=== PATIENT | female | born 2005 | race Caucasian/White ===

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

== ENCOUNTER 2024-01-29 20:17 | Inpatient (IN) | payer OTHER ==
[~2024-01-29] VITALS: Ht 167.6 cm; Wt 109.1 kg
[2024-01-29 20:45] VITALS: BP 117/58
[2024-01-29] MEDS ORDERED: ACYC400 PO (20:51)
[2024-01-29] MEDS ORDERED: PANT40 PO (20:52)
[2024-01-29] MEDS ORDERED: Carboprost Tromethamine 250 MCG/ML 1ML Amp IM PRN (21:00)
[2024-01-29] MEDS ORDERED: Lactated Ringer's 1,000 ML IV PRN ×3 (21:00→21:45)
[2024-01-29] MEDS ORDERED: Acetaminophen 500 MG Tab PO PRN (21:00)
[2024-01-29] MEDS ORDERED: Misoprostol 200 MCG Tab BC PRN (21:00)
[2024-01-29] MEDS ORDERED: Calcium Carbonate 500 MG Tab Chew PO PRN ×2 (21:00→21:35)
[2024-01-29] MEDS ORDERED: Tranexamic Acid 100 ML IV PRN (21:00)
[2024-01-29] MEDS ORDERED: Oxytocin 10 Unit / ML Vial IM PRN (21:00)
[2024-01-29] MEDS ORDERED: Ondansetron HCl 2 MG / ML 2ML Vial IV PRN (21:00)
[2024-01-29] MEDS ORDERED: Methylergonovine Maleate 0.2MG / ML 1ML Amp IM PRN (21:00)
[2024-01-29] MEDS ORDERED: Misoprostol 200 MCG Tab PR PRN (21:00)
[2024-01-29] MEDS ORDERED: OXYTOCIN/RINGER'S LACTATE 500 ML IV PRN (21:00)
[2024-01-29 21:30] LABS: BASOPHILS ABSOLUTE AUTO 0.03 K/mm3 (0.00-0.23); BASOPHILS PERCENT AUTO 0 % (0-2); EOSINOPHILS ABSOLUTE AUTO 0.15 K/mm3 (0.00-0.68); EOSINOPHILS PERCENT AUTO 1 % (0-6); Hematocrit 30.8 % (33.0-51.0); Hemoglobin 10.3 g/dL (11.5-16.0); IMMATURE GRAN ABSOLUTE AUTO 0.13 K/mm3 (0.00-0.10); IMMATURE GRAN PERCENT AUTO 1 % (0-1); LYMPHOCYTES ABSOLUTE AUTO 2.53 K/mm3 (0.84-5.20); LYMPHOCYTES PERCENT AUTO 20 % (21-46); MONOCYTES ABSOLUTE AUTO 0.81 K/mm3 (0.16-1.47); MONOCYTES PERCENT AUTO 6 % (4-13); Mean Corpuscular HGB 29.7 pg (26.0-34.0); Mean Corpuscular HGB Conc 33.4 g/dL (31.5-36.5); Mean Corpuscular Volume 89 fL (80-100); Mean Platelet Volume 10.8 fL (9.1-12.4); NEUTROPHILS PERCENT AUTO 72 % (41-73); Platelet Count 219 K/mm3 (150-400); RDW Coefficient Variation 12.4 % (11.7-14.2); Red Blood Cell Count 3.47 M/mm3 (3.80-5.20); White Blood Cell Count 12.95 K/mm3 (4.00-11.30)
[2024-01-29] MEDS ORDERED: Zolpidem Tartrate 5 MG Tab PO PRN (21:35)
[2024-01-29] MEDS ORDERED: DiphenhydrAMINE HCl 50 MG Cap PO PRN (21:35)
[2024-01-29] MEDS ORDERED: Zolpidem Tartrate 10 MG Tab PO PRN (21:40)
[2024-01-29] MEDS ORDERED: FentaNYL 2mcg/ml-Bup 0.1% Epd 250 ML EPI PRN (21:45)
[2024-01-29] MEDS ORDERED: ePHEDrine Sulfate 50 MG/ML 1ML Injection XX PRN (21:45)
[2024-01-29] MEDS ORDERED: Misoprostol 25 MCG Tab VAG PRN (21:55)
[2024-01-30] VITALS (28 sets, daily range): BP systolic 87–144; BP diastolic 50–95
[2024-01-30] MEDS ORDERED: Misoprostol 25 MCG Tab PO SCH
[2024-01-30] MEDS ORDERED: FentaNYL Citrate 50 MCG/ML 2 ML Injection ONE (14:10)
[2024-01-31] VITALS (12 sets, daily range): BP systolic 117–140; BP diastolic 55–80
[2024-01-31] MEDS ORDERED: Methylergonovine Maleate 0.2MG / ML 1ML Amp IM PRN (00:50)
[2024-01-31] MEDS ORDERED: Lanolin Cream TOP PRN (00:50)
[2024-01-31] MEDS ORDERED: OXYTOCIN/RINGER'S LACTATE 500 ML IV SCH (00:50)
[2024-01-31] MEDS ORDERED: OxyCODONE 5 mg/Acetamin 325 mg TABLET PO PRN (00:50)
[2024-01-31] MEDS ORDERED: FLU VACC TS2024-25(6MOS UP)/PF 45 MCG/0.5 ML SYRINGE IM SCH (00:55)
[2024-01-31] MEDS ORDERED: Benzocaine Topical Anesthetic Spray 60GM TOP PRN (00:55)
[2024-01-31] MEDS ORDERED: Ketorolac Tromethamine 30mg Vial IV PRN (00:55)
[2024-01-31] MEDS ORDERED: Misoprostol 100 MCG Tab PO PRN (00:55)
[2024-01-31] MEDS ORDERED: Ibuprofen 400 MG Tab PO PRN (00:55)
[2024-01-31] MEDS ORDERED: Lactated Ringer's 1,000 ML IV SCH (00:55)
[2024-01-31] MEDS ORDERED: Witch Hazel/Glycerin PADS TOP PRN (00:55)
[2024-01-31] MEDS ORDERED: Acetaminophen 325 MG TABLET PO PRN (01:00)
[2024-01-31] MEDS ORDERED: Docusate Sodium 100 MG Cap PO PRN (01:00)
[2024-01-31] MEDS ORDERED: Diphth,Pertuss(Acell),Tet Vac 0.5 ML VIAL IM SCH (01:00)
[2024-01-31] MEDS ORDERED: Prenatal Vit/FE Fumarate/FA 1 Tab PO SCH (09:00)
[2024-02-01 01:34] VITALS: BP 111/51
[2024-02-01] MEDS ORDERED: IBUP800 PO (02:32)
[2024-02-01 04:55] VITALS: BP 103/57
[2024-02-01 05:50] LABS: BASOPHILS ABSOLUTE AUTO 0.05 K/mm3 (0.00-0.23); BASOPHILS PERCENT AUTO 0 % (0-2); EOSINOPHILS ABSOLUTE AUTO 0.32 K/mm3 (0.00-0.68); EOSINOPHILS PERCENT AUTO 2 % (0-6); Hemoglobin 10.3 g/dL (11.5-16.0); IMMATURE GRAN ABSOLUTE AUTO 0.13 K/mm3 (0.00-0.10); IMMATURE GRAN PERCENT AUTO 1 % (0-1); LYMPHOCYTES ABSOLUTE AUTO 2.65 K/mm3 (0.84-5.20); LYMPHOCYTES PERCENT AUTO 20 % (21-46); MONOCYTES ABSOLUTE AUTO 0.81 K/mm3 (0.16-1.47); MONOCYTES PERCENT AUTO 6 % (4-13); Mean Corpuscular HGB 29.9 pg (26.0-34.0); Mean Corpuscular HGB Conc 33.2 g/dL (31.5-36.5); Mean Corpuscular Volume 90 fL (80-100); NEUTROPHILS ABSOLUTE AUTO 9.11 K/mm3 (1.96-9.15); NEUTROPHILS PERCENT AUTO 70 % (41-73); Platelet Count 207 K/mm3 (150-400); RDW Coefficient Variation 12.4 % (11.7-14.2); RDW Standard Deviation 40.5 fL (35.1-46.3); Red Blood Cell Count 3.45 M/mm3 (3.80-5.20); White Blood Cell Count 13.07 K/mm3 (4.00-11.30)
[2024-02-01 08:25] VITALS: BP 138/62
== END 2024-02-01 10:00 | disposition home or self-care (01) | DRG 806 ==
LOC: OBS 20:17 → BC 20:25
PROVIDERS: ADMIT Advanced Practice Midwife
PROC: 3E0P7VZ Introduction of Hormone into Female Reproductive, Via Natural or Artificial Opening (ICD-10-PCS; 2024-01-29)
PROC: 4A1HXCZ Monitoring of Products of Conception, Cardiac Rate, External Approach (ICD-10-PCS; 2024-01-29)
PROC: 10907ZC Drainage of Amniotic Fluid, Therapeutic from Products of Conception, Via Natural or Artificial Opening (ICD-10-PCS; 2024-01-30)
PROC: 3E033VJ Introduction of Other Hormone into Peripheral Vein, Percutaneous Approach (ICD-10-PCS; 2024-01-30)
PROC: 10E0XZZ Delivery of Products of Conception, External Approach (ICD-10-PCS; principal; 2024-01-31)
DX: O99.324 Drug use complicating childbirth (principal); O99.354 Diseases of the nervous system complicating childbirth; Z37.0 Single live birth; F12.90 Cannabis use, unspecified, uncomplicated; Z3A.39 39 weeks gestation of pregnancy; O69.81X0 Labor and delivery complicated by cord around neck, without compression, not applicable or unspecified; O99.62 Diseases of the digestive system complicating childbirth; K21.9 Gastro-esophageal reflux disease without esophagitis; Z79.82 Long term (current) use of aspirin; G47.30 Sleep apnea, unspecified
CPT/HCPCS: 36415; 51702; 85025; 86850; 86900; 86901; A9270; J1885; J2405; J2590; J7120